=== PATIENT | male | born 1985 | race Caucasian/White ===

== ENCOUNTER 2017-05-25 20:07 | Emergency (ER) | payer SELFPAY | END 2017-05-25 20:20 | disposition left against medical advice (07) | DX: Z53.21 Procedure and treatment not carried out due to patient leaving prior to being seen by health care provider (principal) ==

== ENCOUNTER 2017-05-28 19:46 | Emergency (ER) | payer MEDICAID ==
[2017-05-28 20:10] VITALS: RESP 18; TEMP 98.1; O2SAT 95
--- NOTE | 2017-05-28 20:44 | EDPHY ---
H & P Stated Complaint: ETOH detox Time Seen by Provider: 05/28/17 20:25 HPI/ROS: Chief Complaint: Alcohol withdrawal HPI: 31-year-old male with a history of longstanding alcoholism presenting with the shakes and feeling like he is not alcohol withdrawal. States last drink was about noon. [facility]. Does not have a history of his alcohol withdrawal seizures in the past. No fevers or chills. No nausea or vomiting. No falls or syncope. No trauma. ROS: 10 point Review of Systems is negative except as noted in the HPI. PMH: None Social History: Positive for smoking, heavy alcohol, no recreational drug use Family History: non-contributory Physical Exam: Gen: Awake, Alert, mildly tremulous HEENT: Nose: no rhinorrhea Eyes: PERRLA, EOMI Mouth: Moist mucosa Neck: Supple, no JVD Chest: nontender, lungs clear to auscultation Heart: S1, S2 normal, no murmur Abd: Soft, non-tender, no guarding Back: no CVA tenderness, no midline tenderness Ext: no edema, non-tender Skin: no rash Neuro: CN II-XII intact, Sensation grossly intact, Strength 5/5 in bilateral upper and lower extremities - Personal History Current Tetanus/Diphtheria Vaccine: No Current Tetanus Diphtheria and Acellular Pertussis (TDAP): No - Medical/Surgical History Hx Asthma: No Hx Chronic Respiratory Disease: No Hx Diabetes: No Hx Cardiac Disease: No Hx Renal Disease: No Hx Cirrhosis: No Hx Alcoholism: Yes Hx HIV/AIDS: No Hx Splenectomy or Spleen Trauma: No Other PMH: L ACL repair, L heel fx - Social History Smoking Status: Current every day smoker Constitutional: Initial Vital Signs Temperature (C) 36.7 C 05/28/17 20:08 Heart Rate 100 05/28/17 20:08 Respiratory Rate 18 05/28/17 20:08 Blood Pressure 139/33 H 05/28/17 20:08 O2 Sat (%) 95 05/28/17 20:08 O2 Delivery Mode Room Air Allergies/Adverse Reactions: No Known Allergies Allergy (Unverified 05/28/17 20:07) Home Medications: Medication Instructions Recorded IBUPROFEN 05/28/17 Medical Decision Making ED Course/Re-evaluation: Patient here with mild alcohol withdrawal symptoms. No history of seizures in the past. He states [facility]. Will send him with a Librium prepack. Departure - Departure Disposition: Home, Routine, Self-Care Clinical Impression: Alcohol withdrawal Condition: Good Instructions: Alcohol Withdrawal (ED), Chlordiazepoxide (By mouth) Additional Instructions: Go directly to the [facility]. Please seek help to discontinue alcohol use. Referrals: JUAN JOSE BAUTISTA [Other] - As per Instructions
[2017-05-28] MEDS ORDERED: CHLORDIAZEPOXIDE 25MG PREPK#6 BTL TAKEHOME ONE (20:45)
[2017-05-28 21:19] VITALS: BP 131/59; PULSE 91
== END 2017-05-28 21:17 | disposition home or self-care (01) ==
DX: F10.239 Alcohol dependence with withdrawal, unspecified (principal); F17.200 Nicotine dependence, unspecified, uncomplicated